=== PATIENT | male | born 1955 | race Asian ===

== ENCOUNTER 2016-10-14 14:25 | Emergency (ER) | payer OTHER ==
[~2016-10-14] VITALS: Ht 175.3 cm; Wt 87.5 kg
[2016-10-14] MEDS ORDERED: IV NS 0.9% 1,000 ML BAG IV ONE (14:30)
[2016-10-14] MEDS ORDERED: IV NS 0.9% 1,000 ML ONE (14:42)
[2016-10-14 14:46] LABS: BASOPHILS % (AUTO) 0.4 % (0.0-2.0); DIFF TOTAL % 100 %; EOSINOPHILS # (AUTO) 0.2 /CMM (0.0-0.7); EOSINOPHILS % (AUTO) 3.1 % (0.0-6.0); HEMATOCRIT 40 % (39-51); HEMOGLOBIN 13.5 g/dL (13.5-17.5); LYMPHOCYTES # (AUTO) 2.3 /CMM (0.8-4.8); LYMPHOCYTES % (AUTO) 36.3 % (20.0-44.0); MEAN CORPUSCULAR HEMOGLOBIN 31 PG (26.0-33.0); MEAN CORPUSCULAR HGB CONC 33 g/dl (31.0-36.0); MEAN CORPUSCULAR VOLUME 93 fL (80-96); MONOCYTES # (AUTO) 0.8 /CMM (0.1-1.30); MONOCYTES % (AUTO) 12.2 % (2.0-12.0); PLATELET COUNT (AUTO) 166 /CMM (150-450); RED BLOOD CELL COUNT(AUTO) 4.32 MIL/uL (4.5-6.0); WHITE BLOOD COUNT (AUTO) 6.3 K/uL (4.3-11.0)
[2016-10-14 14:57] LABS: ANION GAP 10 (5-14); CALCIUM, SERUM 8.8 mg/dL (8.5-10.1); CARBON DIOXIDE 31 mmol/L (21-32); CHLORIDE 107 mmol/L (98-107); CREATININE 0.9 mg/dL (0.6-1.3); GFR 87 mL/min (>60); GLUCOSE 124 mg/dL (74-106); POTASSIUM 3.8 mmol/L (3.5-5.1); SODIUM SERUM 144 mmol/L (136-145); UREA NITROGEN, BLOOD 21 mg/dL (7-18)
[2016-10-14 15:00] LABS: INR 0.98 (0.87-1.13); PROTHROMBIN TIME 10.3 SECS (9.5-12.7)
[2016-10-14 15:03] LABS: ALANINE AMINOTRANSFERASE 33 U/L (12-78); ALBUMIN 3.8 g/dL (3.4-5.0); ASPARTATE AMINOTRANSFERASE 17 U/L (15-37); BILIRUBIN,DIRECT 0.1 mg/dL (0.0-0.2); BILIRUBIN,TOTAL 0.5 mg/dL (0.2-1.0); INDIRECT BILIRUBIN 0.4 mg/dL (0.0-1.1); TOTAL PROTEIN, SERUM 7.1 g/dL (6.4-8.2)
[2016-10-14 15:05] LABS: TROPONIN I < 0.017 ng/mL (0.00-0.056)
[2016-10-14] MEDS ORDERED: CT SWABBABLE VALVE TRANS SET 1 EA INFUS.SET MC ONE (16:15)
[2016-10-14] MEDS ORDERED: IV NS 0.9% 250 ML IV ONE (16:15)
[2016-10-14] MEDS ORDERED: IOHEXOL-350 100 ML VIAL IV ONE (16:15)
[2016-10-14] MEDS ORDERED: ONDANSETRON HCL/PF 4 MG/2 ML VIAL IVP ONE (16:30)
[2016-10-14] MEDS ORDERED: MORPHINE SULFATE INJ 2 MG/ML DISP.SYRIN IV ONE (16:30)
[2016-10-14] MEDS ORDERED: ATOR20TA PO (16:32)
[2016-10-14] MEDS ORDERED: PARO10TA26 PO (16:32)
[2016-10-14] MEDS ORDERED: LOSA25TA13 PO (16:32)
[2016-10-14] MEDS ORDERED: METF500T4 PO (16:32)
[2016-10-14] MEDS ORDERED: ATEN25TA PO (16:32)
[2016-10-14] MEDS ORDERED: ONDANSETRON HCL/PF 4 MG/2 ML VIAL ONE ×2 (16:33→16:48)
[2016-10-14] MEDS ORDERED: MORPHINE SULFATE INJ 4 MG/ML DISP.SYRIN ONE (16:33)
[2016-10-14] MEDS ORDERED: ONDANSETRON HCL/PF - ER 4 MG/2 ML VIAL IV ONE (17:00)
[2016-10-14] MEDS ORDERED: METOCLOPRAMIDE HCL 10 MG/2 ML VIAL ONE (17:19)
[2016-10-14] MEDS ORDERED: METOCLOPRAMIDE HCL 10 MG/2 ML VIAL IV ONE (17:30)
[2016-10-14] MEDS ORDERED: NICARDIPINE IN DEXTROSE,ISO-OS 200 ML IV ONE (18:09)
[2016-10-14] MEDS ORDERED: IV SET PRIMARY PUMP SET 1 EA INFUS.SET MC ONE ×2 (18:11→22:19)
[2016-10-14] MEDS ORDERED: NICARDIPINE IN DEXTROSE,ISO-OS 200 ML IV PRN (18:30)
[2016-10-14] MEDS ORDERED: NIMODIPINE (30MG) 30 MG CAPSULE ONE (19:37)
[2016-10-14] MEDS ORDERED: NIMODIPINE (30MG) 30 MG CAPSULE PO ONE (20:00)
[2016-10-14] MEDS ORDERED: LEVETIRACETAM (500MG) 500 MG/5 ML VIAL IV ONE (22:18)
[2016-10-14] MEDS ORDERED: IV NS 0.9% 100 ML IV ONE (22:19)
[2016-10-14] MEDS ORDERED: LEVETIRACETAM (500MG) 1,000 MG in IV NS 0.9% 100 ML IV SCH (22:30)
[2016-10-14 23:28] VITALS: BP 141/92
== END 2016-10-14 23:59 | disposition short-term general hospital (02) ==
LOC: ER 14:26
DX: I60.9 Nontraumatic subarachnoid hemorrhage, unspecified (principal); R55 Syncope and collapse
CPT/HCPCS: 36415; 51702; 70450; 70486; 70496; 70498; 71010; 72125; 80048; 80076; 82962; 84484; 85025; 85730; 86850; 93005; 96361; 96365; 96367; 96375; 96376; 99291; A4606; J1953; J2270; J2405 ×2; J2765; J7030 ×2; J7050; Q9967; Z7610